=== PATIENT | male | born 1960 | race Caucasian/White ===

== ENCOUNTER 2023-06-25 19:00 | Outpatient (RCR) | payer OTHER, BC, SELFPAY | END 2023-06-25 23:59 | disposition home or self-care (01) | LOC: RPT 19:00 | PROVIDERS: ATTENDING PHYSICIAN Physician Assistant | DX: M54.50 Low back pain, unspecified (principal); Z73.6 Limitation of activities due to disability | CPT/HCPCS: 97110; 97162 ==

== ENCOUNTER 2023-07-23 19:04 | Outpatient (RCR) | payer OTHER, BC, SELFPAY | END 2023-07-23 23:59 | disposition home or self-care (01) | LOC: RPT 19:04 | PROVIDERS: ATTENDING PHYSICIAN Physician Assistant | DX: M54.50 Low back pain, unspecified (principal); Z73.6 Limitation of activities due to disability | CPT/HCPCS: 97110; 97140 ==

== ENCOUNTER → 2023-08-08 12:20 | Outpatient (REF) | payer OTHER, BC, SELFPAY | LOC: MRI 3T 12:20 | PROVIDERS: ATTENDING PHYSICIAN Physician Assistant | DX: M54.16 Radiculopathy, lumbar region (principal); Z87.828 Personal history of other (healed) physical injury and trauma | CPT/HCPCS: 72148 ==

== ENCOUNTER → 2023-09-16 06:26 | Day surgery (SDC) | payer BC, SELFPAY | LOC: GI 06:26 | PROVIDERS: ATTENDING PHYSICIAN Internal Medicine Gastroenterology | DX: Z12.11 Encounter for screening for malignant neoplasm of colon (principal); K63.5 Polyp of colon; K57.30 Diverticulosis of large intestine without perforation or abscess without bleeding; K64.8 Other hemorrhoids | CPT/HCPCS: 45385; 88305 ==

== ENCOUNTER 2024-01-26 08:46 | Emergency (ER) | payer BC, SELFPAY ==
[2024-01-26 09:03] VITALS: BP 124/75
--- NOTE | 2024-01-26 09:43 | ED.GENMED ---
History of Present Illness
General
Chief Complaint: Chest Pain
Source: patient
Exam Limitations: none
Time Seen by Provider: 01/26/24 09:23
Nursing documentation reviewed up to this point in time: agreed with
History of Present Illness
History of Present Illness:
63-year-old male presents to the emergency room for evaluation of chest pain. Patient reports onset of symptoms last night and they have been constant since that time�he reports initially it was a mild dull burning which became more intense earlier
this morning and has improved since arrival in the ER. He reports associated belching. He denies any nausea or vomiting. He denies abdominal pain. He denies any shortness of breath, dizziness. He was in his normal state of health yesterday he
was not having any coughing, fevers, chills. No swelling or pain in the legs. He says that he had some soup last night but it was not spicy and did not have any other unusual foods. He does report similar symptoms in the past he says was ruled
out for cardiac chest pain. He denies any known cardiac history. Denies any recent travel or flights. Denies any other complaints.
Past History
Past History
ED Past Medical History: None
ED Past Surgical History: Orthopedic
Social History
Tobacco: Non-smoker
Personal:
Living: with family
Employment: Employed
Family History
Family History: Negative Early CAD or CAD
Review of Systems
Review of Systems
All Other Systems: ROS reviewed and negative except as documented in HPI and ROS
Constitutional: Denies fever or chills
Respiratory: Denies cough or trouble breathing
Cardiac: Reports chest pain; Denies diaphoresis, palpitations or syncope
ABD/GI: Reports other (Belching); Denies abdominal pain, nausea, vomiting or diarrhea
Musculoskeletal: Denies neck pain or back pain
Neurological: Denies dizzy or headache
Phy Exam
Physical Exam
Physical Exam:
General: Awake, alert, oriented x3; no acute distress
Head: Normocephalic, atraumatic
Eyes: Conjunctiva normal
Throat: Airway intact, handling secretions
Neck: Trachea midline, supple without meningismus
Lungs: Clear to auscultation bilaterally, no wheezing, rales, rhonchi
Heart: Regular rate and rhythm, no murmurs, gallops, or rubs
Abd: Soft, non distended, nontender
Neuro: No gross deficits
Extremities: No edema in extremities, no calf tenderness, equal pulses in all extremities
Scores
Heart Failure Risk
Heart Failure Risk Score: Not Applicable
Heart Score for Chest Pain Patients
STEMI patient?: No
History: Slightly or Non-Suspicious
ECG: Normal
Age: >45 - <65 years
Risk Factors: No Risk Factors
Troponin: </= Normal Limit
Heart Score for Chest Pain Patients: 1
Heart Score Risk: 2.5% MACE over next 6 weeks
Withdrawal Assessment of Alcohol
Withdrawal Assessment Completed?: Not applicable
Course
Orders/Labs/Results
Orders:
Orders
01/26/24 08:58
EKG [Electrocardiogram (*1)] Urgent
Reason for Study: Chest Pain
EKG- Treatment ONCE
01/26/24 09:24
CR Chest - 2 Views Urgent
Comment:
Reason For Exam: chest pain
01/26/24 09:43
Mag Hydrox/Al Hydrox/Simeth [Maalox] 30 ml Phenobarb/Hyoscy/Atropine/Scop [] 10 ml Viscous Lidocaine 2% [Xylocaine Viscous Cup] 10 ml PO NOW
01/26/24 09:46
Mag Hydrox/Al Hydrox/Simeth [Maalox] 30 ml .ROUTE .STK-MED ONE
Phenobarb/Hyoscy/Atropine/Scop [] 10 ml .ROUTE .STK-MED ONE
01/26/24 09:47
Viscous Lidocaine 2% [Xylocaine Viscous Cup] 15 ml .ROUTE .STK-MED ONE
01/26/24 09:59
Complete Blood Count/With Diff Urgent
Comprehensive Metabolic Panel Urgent
Troponin I Urgent
01/26/24 12:35
Troponin I Urgent
01/26/24 13:07
Electrocardiogram (*1) Urgent
Reason for Study: Other
Other Reason for Exam: repeat
EKG- Treatment ONCE
Abnormal Lab Results
01/26/24
09:59
WBC 4.6 L 10^3/uL
(4.8-10.8)
Monocytes % 10.6 H %
(1.7-9.3)
BUN 22 H mg/dl
(9-20)
01/26/24 09:59
01/26/24 09:59
Vital Signs
Initial and Last Documented VS:
Initial Vital Signs
Temp Pulse Resp BP Pulse Ox
37.0 C 64 16 124/75 98
01/26/24 09:03 01/26/24 09:03 01/26/24 09:03 01/26/24 09:03 01/26/24 09:03
Last Documented Vital Signs
Temp Pulse Resp BP Pulse Ox
37.0 C 50 18 101/74 100
01/26/24 09:03 01/26/24 13:16 01/26/24 13:16 01/26/24 13:00 01/26/24 13:16
MDM/Problems Addressed
Differential Diagnosis Includes:
Heartburn, costochondritis, angina/ACS, pericarditis; very low clinical suspicion for PE or aortic dissection and in my judgment no further workup for these diagnoses indicated at this point
MDM/Problems Addressed:
63-year-old male presents to the emergency room for evaluation of burning chest discomfort associate with belching. Started last night and has been constant, became quite severe at one point but seems to have improved. Vitals normal. Exam is as
above. EKG shows sinus rhythm no acute ischemia. Will place an IV check labs including a CBC and CMP. Check troponin. Will check chest x-ray. Will monitor on telemetry. Certainly by history this sounds like GERD�can treat with GI cocktail and
reassess.
Labs reviewed: CBC and CMP no clinically significant abnormalities. Troponins undetectable x 2. X-ray no acute disease. Symptoms improved with GI cocktail. Suspect GERD is likely etiology to his symptoms. Will plan to discharge, follow-up with
PCP. Will start on PPI. Patient comfortable to this plan. All questions answered.
*Radiology
Radiology exam reviewed: preliminary read by ED provider and radiology read reviewed
*Pulse Oximetry
Patient hypoxic: no
*EKG
Interpreted by ED Provider?: Yes
Heart Rate: 54
Rate: bradycardiac
Rhythm: sinus
Cochrane: normal axis
Interval: normal interval
QRS Pattern: normal QRS
Ischemia: no ischemia
*Critical Care Note
Total Time (30-74mins, 75-104mins- exclusive of procedures): Not Applicable
Data Reviewed
Review of Other/Old Records Reveals: Labs and Records
Source: patient and records
ED Attending Note
-
Portions of this chart may have been created with voice recognition software.� Occasional wrong word or��sound alike� substitutions may have occurred due to the inherent limitations of voice recognition software.
Discharge Plan
Departure
Patient Disposition: Home (Routine Discharge)
Date of Disposition: 01/26/24
Time of Disposition: 13:27
Patient with high blood pressure during this ER visit?: No
Discharge Problem:
Chest pain
Instructions: Chest Pain PCP Follow Up
Prescriptions:
New
pantoprazole 40 mg tablet,delayed release (DR/EC)
40 mg PO DAILY Qty: 30 0RF
No Action
No Meds [No Current Medications]
Referrals:
Herminio Pickering MD [Family Provider] - Follow up in 5-7 days
Activity Restrictions/Additional Instructions:
Thank you for visiting the Emergency Department at [facility].
1. Please schedule a follow up appointment as directed. Call first thing tomorrow morning to make an appointment.
2. If indicated, please take your medications as instructed and indicated on discharge paperwork.
3. If any of your symptoms do not improve, or persist, or become more severe within 6-12 hours, please return to the emergency department for further care.
4. Please return to the emergency department if you develop a headache, neck pain/stiffness, fever greater than 100.4F, chest pain, shortness of breath, persistent nausea, vomiting, slurred speech, difficulty walking, numbness/tingling, weakness,
signs of infection or any other symptoms that are worrisome to you.
Please call [phone] if you have any questions.
Interventions
Interventions:
*Risk Screen - Suicide Last Done: 01/26/24 09:03
*General Assessment Last Done: 01/26/24 09:03
*Neglect/Abuse Screening Last Done: 01/26/24 09:03
*ED COVID-19 Vaccine History Last Done: 01/26/24 09:51
ED- Cardiac Assessment Last Done: 01/26/24 09:30
Discharge Date and Time
Print Language: [place]
[2024-01-26] MEDS: MAALOX 50 PO (09:48)
[2024-01-26 09:51] VITALS: BMI 25.2
[2024-01-26 10:11] LABS: % Basophils 0.6 % (0-2); % Eosinophils 3.5 % (0-6); % Immature Granulocytes 0.2 % (0-0.5); % Lymphocytes 30.7 % (20.5-51.1); % Monocytes 10.6 % (1.7-9.3); % Neutrophils 54.4 % (42.2-75.2); Absolute Eosinophils 0.2 10^3/uL (0-0.7); Absolute Lymphocytes 1.4 10^3/uL (1.2-3.4); Absolute Monocytes 0.5 10^3/uL (0.1-0.6); Absolute Neutrophils 2.5 10^3/uL (1.4-6.5); Hematocrit 43.5 % (39.0-52.0); Hemoglobin 14.9 g/dL (13.0-18.0); Mean Corp Hgb Conc. 34.3 g/dL (33.0-37.0); Mean Corpuscular Volume 87.7 fL (80.0-94.0); Mean Platelet Volume 10.4 fL (7.4-10.4); Nucleated Red Blood Cells % 0 % (-); Platelet Count 201 10^3/uL (130-400); Red Blood Cell Count 4.96 10^6/uL (4.70-6.10); Red Cell Dist. Width 13.1 % (11.5-14.5); White Blood Cell Count 4.6 10^3/uL (4.8-10.8)
[2024-01-26 10:23] LABS: ALT (SGPT) 24 U/L (0-50); AST (SGOT) 30 U/L (17-59); Albumin 4.6 g/dl (3.5-5.0); Alkaline Phosphatase 55 U/L (38-126); Blood Urea Nitrogen 22 mg/dl (9-20); Calcium 9.7 mg/dl (8.4-10.2); Carbon Dioxide 28 mmol/L (22-30); Chloride 104 mmol/L (98-107); Estimated Creatinine Clearance 82 ml/min; Glucose 89 mg/dl (70-99); Potassium 4.5 mmol/L (3.5-5.1); Sodium 140 mmol/L (135-145); Total Protein 7.5 g/dl (6.3-8.2); eGFR > 60.00
[2024-01-26 10:35] LABS: Troponin I < 0.012 ng/ml
[2024-01-26 10:45] VITALS: BP 105/69
[2024-01-26 11:00] VITALS: BP 104/69
[2024-01-26 12:00] VITALS: BP 99/62
[2024-01-26 13:00] VITALS: BP 101/74
[2024-01-26 13:25] LABS: Troponin I < 0.012 ng/ml
== END 2024-01-26 13:35 | disposition home or self-care (01) ==
LOC: EMR 08:46
PROVIDERS: EMERGENCY PHYSICIAN Emergency Medicine; FAMILY PHYSICIAN Internal Medicine
DX: R07.89 Other chest pain (principal)
CPT/HCPCS: 99283; 71046; 80053; 84484; 85025; 93005

== ENCOUNTER 2024-10-20 11:04 | Outpatient (RCR) | payer BC, SELFPAY | END 2024-10-20 23:59 | disposition home or self-care (01) | LOC: RPT 11:04 | PROVIDERS: ATTENDING PHYSICIAN Physician Assistant | DX: M25.562 Pain in left knee (principal); M54.16 Radiculopathy, lumbar region; M76.32 Iliotibial band syndrome, left leg; Z73.6 Limitation of activities due to disability; R26.89 Other abnormalities of gait and mobility; M62.81 Muscle weakness (generalized) | CPT/HCPCS: 97110; 97162 ==

== ENCOUNTER 2024-11-23 15:02 | Outpatient (RCR) | payer BC, SELFPAY | END 2024-11-23 23:59 | disposition home or self-care (01) | LOC: RPT 15:02 | PROVIDERS: ATTENDING PHYSICIAN Physician Assistant | DX: M25.562 Pain in left knee (principal); M54.16 Radiculopathy, lumbar region; M76.32 Iliotibial band syndrome, left leg; Z73.6 Limitation of activities due to disability; R26.89 Other abnormalities of gait and mobility; M62.81 Muscle weakness (generalized) | CPT/HCPCS: 97110; 97112 ==